=== PATIENT | male | born 1965 ===

== ENCOUNTER 2018-01-27 14:44 | Emergency (ER) | payer OTHER ==
[~2018-01-27] VITALS: Ht 180.3 cm; Wt 81.6 kg
[~2018-01-27 14:44] MED LIST: CIPRO500 MG PO; KETO10TA2 PO
[2018-01-27] MEDS ORDERED: AMBIEN5 MG (15:27)
== END 2018-01-27 21:34 | disposition home or self-care (01) ==
LOC: ER 14:44
DX: N20.0 Calculus of kidney (principal); R10.31 Right lower quadrant pain

== ENCOUNTER → 2019-04-13 11:06 | Outpatient (CLI) | payer OTHER ==
[~2019-04-13 11:06] MED LIST changes: +AMBIEN5 MG
== END | disposition home or self-care (01) ==
LOC: LAB 11:06
DX: N20.0 Calculus of kidney (principal)